=== PATIENT | female | born 1990 | race American Indian/Alaskan Native ===

== ENCOUNTER 2018-11-01 18:14 | Emergency (ER) | payer OTHER ==
--- NOTE | 2018-11-01 18:29 | C.PDOC ---
History Of Present Illness 28 y.o. female presents for evaluation of dry cough and throat irritation for 3 days s/p Mr. Mendoza and Bleach exposure x3 days ago. The pt reports cleaning in a closed room with these chemicals when she noticed dry cough, runny nose, and throat irritation. Admits no relief after using Duoneb prior to arrival. Denies fever, chills, hx of asthma, CP, or any other associated symptoms. dry cough, IRRITATION X 3 DAYS. ONSET AFTER MR CLEAN AND BLEACH EXPOSURE IN CLOSED ROOM. PS SINCE THEN W DRY COUGH RUNNY NOSE AND IRRITATION. DENIES HO ASTHMA. NO SOB, CP. NO RELIEF W DUONEB CORRECTIONAL GUARD. EXAM NONTOXIC HEENT NOSE CLEAR LUNGS CTA B/L NO W/R/R +DRY HACKING COUGH SPEAKING FULL SENTENCES REMAINDER NEG Time Seen by Provider: 11/01/18 18:20 History Per: Patient History/Exam Limitations: no limitations Onset/Duration Of Symptoms: Days (x3) Current Symptoms Are (Timing): Still Present Recent travel outside of the [place]: No Past Medical History Reviewed: Historical Data, Nursing Documentation, Vital Signs Family History: States: Unknown Family Hx - Social History Hx Alcohol Use: No Hx Substance Use: No - Immunization History Hx Tetanus Toxoid Vaccination: No Hx Influenza Vaccination: No Hx Pneumococcal Vaccination: No Review Of Systems Except As Marked, All Systems Reviewed And Found Negative. Constitutional: Negative for: Fever, Chills, Other (hx of asthma. ) ENT: Positive for: Throat Pain (irritation. ), Other (runny nose. ) Cardiovascular: Negative for: Chest Pain Respiratory: Positive for: Cough (dry. ) Physical Exam - Physical Exam Appears: Non-toxic, No Acute Distress Skin: Warm, Dry Head: Atraumatic, Normacephalic Eye(s): left: Normal Inspection Oral Mucosa: Moist Throat: Normal, No Erythema, No Exudate Neck: Normal ROM, Supple Chest: Symmetrical, No Deformity Cardiovascular: Rhythm Regular, No Murmur Respiratory: Normal Breath Sounds, No Rales, No Rhonchi, No Wheezing Gastrointestinal/Abdominal: Normal Exam, Soft, No Tenderness, No Distention, No Guarding, No Rebound, Other (+DRY HACKING COUGH SPEAKING FULL SENTENCES.) Extremity: Bilateral: Atraumatic, Normal Color And Temperature, Normal ROM Neurological/Psych: Oriented x3, Normal Speech, Normal Cognition Medical Decision Making Medical Decision Making: Initial plan: -Decadron -Tessalon Perles Progress/Update: Pt stable for discharge home. Prescribed Tessalon Perles. Advised to follow up with PMD or return to the ED if symptoms worsen. Disposition Counseled Patient/Family Regarding: Diagnosis, Need For Followup, Rx Given - Disposition Referrals: YOUR,PMD [Other] Disposition: HOME/ ROUTINE Disposition Time: 18:30 Condition: IMPROVED Forms: Work Excuse - Clinical Impression Clinical Impression: Chlorine gas exposure - Scribe Statement The provider has reviewed the documentation as recorded by the Scribe (Keyonna Buckley) Provider Attestation: All medical record entries made by the Scribe were at my direction and personally dictated by me. I have reviewed the chart and agree that the record accurately reflects my personal performance of the history, physical exam, medical decision making, and the department course for this patient. I have also personally directed, reviewed, and agree with the discharge instructions and disposition.
[2018-11-01 18:55] VITALS: PULSE 96; RESP 18; TEMP 98.7; O2SAT 99
[2018-11-01 18:59] VITALS: BP 107/69
== END 2018-11-01 18:57 | disposition home or self-care (01) ==
LOC: C.ER 18:14
DX: Z77.098 Contact with and (suspected) exposure to other hazardous, chiefly nonmedicinal, chemicals (principal)
CPT/HCPCS: 99283; J8540